=== PATIENT | female | born 1960 | race Caucasian/White ===

== ENCOUNTER 2019-07-08 10:50 | Outpatient (RCR) | payer OTHER | END 2019-07-12 | LOC: PT 10:50 | PROVIDERS: ATTEND Specialist | DX: M75.42 Impingement syndrome of left shoulder (principal) ==

== ENCOUNTER 2019-07-22 11:00 | Outpatient (RCR) | payer OTHER | END 2019-08-12 | LOC: PT 11:00 | PROVIDERS: ATTEND Specialist | DX: M75.42 Impingement syndrome of left shoulder (principal) ==